=== PATIENT | female | born 1985 | race Caucasian/White ===

== ENCOUNTER 2020-01-15 12:30 | Emergency (ER) | payer OTHER ==
[~2020-01-15] VITALS: Ht 167.6 cm; Wt 81.6 kg
[2020-01-15 12:34] VITALS: BP 110/62
== END 2020-01-15 12:55 | disposition home or self-care (01) ==
LOC: ER 12:35
DX: Z20.828 Contact with and (suspected) exposure to other viral communicable diseases (principal)
CPT/HCPCS: 99283; C9803; U0003

== ENCOUNTER 2020-02-09 10:08 | Emergency (ER) | payer OTHER ==
[~2020-02-09] VITALS: Ht 167.6 cm; Wt 81.6 kg
[2020-02-09 10:20] VITALS: BP 114/76
--- NOTE | 2020-02-09 10:40 | NUR ---
COVID SWAB SENT. Patient discharged to home in stable condition. Written and verbal after care instructions given. Patient verbalizes understanding of instruction.
== END 2020-02-09 10:40 | disposition home or self-care (01) ==
LOC: ER 10:13
DX: Z20.828 Contact with and (suspected) exposure to other viral communicable diseases (principal)
CPT/HCPCS: 99283; C9803; U0003

== ENCOUNTER 2020-07-01 11:09 | Emergency (ER) | payer OTHER ==
[~2020-07-01] VITALS: Ht 167.6 cm; Wt 81.6 kg
[2020-07-01 11:13] VITALS: BP 120/62
--- NOTE | 2020-07-01 11:28 | NUR ---
Patient discharged to home in stable condition. Written and verbal after care instructions given. Patient verbalizes understanding of instruction.
== END 2020-07-01 11:29 | disposition home or self-care (01) ==
LOC: ER 11:11
DX: Z20.822 Contact with and (suspected) exposure to COVID-19 (principal)
CPT/HCPCS: 99283; C9803; U0003

== ENCOUNTER 2020-07-15 12:16 | Emergency (ER) | payer OTHER ==
[~2020-07-15] VITALS: Ht 167.6 cm; Wt 81.6 kg
[2020-07-15 12:18] VITALS: BP 126/81
--- NOTE | 2020-07-15 12:30 | NUR ---
COVID SWAB SENT.
--- NOTE | 2020-07-15 12:31 | NUR ---
Patient discharged to home in stable condition. Written and verbal after care instructions given. Patient verbalizes understanding of instruction.
== END 2020-07-15 12:31 | disposition home or self-care (01) ==
LOC: ER 12:17
DX: Z20.822 Contact with and (suspected) exposure to COVID-19 (principal)
CPT/HCPCS: 99283; C9803; U0003

== ENCOUNTER 2020-08-04 16:41 | Emergency (ER) | payer OTHER ==
[~2020-08-04] VITALS: Ht 167.6 cm; Wt 81.6 kg
[2020-08-04 16:52] VITALS: BP 122/83
--- NOTE | 2020-08-04 17:15 | NUR ---
covid swab collected and sent to lab
--- NOTE | 2020-08-04 17:16 | NUR ---
Patient discharged to home in stable condition. Written and verbal after care instructions given. Patient verbalizes understanding of instruction.
== END 2020-08-04 17:16 | disposition home or self-care (01) ==
LOC: ER 16:44
DX: Z20.822 Contact with and (suspected) exposure to COVID-19 (principal)
CPT/HCPCS: 99283; C9803; U0003

== ENCOUNTER 2021-01-03 11:34 | Emergency (ER) | payer OTHER ==
[~2021-01-03] VITALS: Ht 167.6 cm; Wt 86.2 kg
[2021-01-03 11:43] VITALS: BP 128/76
--- NOTE | 2021-01-03 11:50 | NUR ---
BIBS C/O A PT'S BODY FLUIDS FROM A TRACH SPLATTERED INTO HER FACE THIS MORNING AT 0930 WHILE AT WORK. PT WAS WEARING A FACEMASK BUT NO FACESHIED AND THE SPUTUM GOT INTO HER EYES. SHE STATES THAT THE SPUTUM WAS THICK ENOUGH TO BLUR HER VISION AT THE TIME. DENIES BLURRED VISION AT THIS MOMENT. PT UNAWARE OF HEALTH HISTORY OF PATIENT ON THE TRACH. A&OX4. AMBULATORY. BREATING EVEN AND UNLABORED. PULSES 2+ BILATERALLY. AWAITING FOR .
--- NOTE | 2021-01-03 12:18 | NUR ---
LAB AT BEDSIDE.
--- NOTE | 2021-01-03 13:37 | NUR ---
Patient discharged to home in stable condition. Written and verbal after care instructions given. Patient verbalizes understanding of instruction.
== END 2021-01-03 13:38 | disposition home or self-care (01) ==
LOC: ER 11:37
DX: Z77.21 Contact with and (suspected) exposure to potentially hazardous body fluids (principal)
CPT/HCPCS: 36415; 86706; 86803; 87806